=== PATIENT | male | born 1970 | race African-American/Black ===

== ENCOUNTER 2019-05-10 09:08 | Emergency (ER) | payer SELFPAY ==
--- NOTE | 2019-05-10 10:46 | ER Document Report ---
HPI - HPI Patient complains to provider of: cough Time Seen by Provider: 05/10/19 10:40 Onset: Yesterday Onset/Duration: Sudden Quality of pain: Achy Pain Level: 1 Context: This 49-year-old male with no past medical history presents emergency department with complaints of cough productive with green sputum since yesterday. Reports fever this morning but did not take his temperature. Denies vomiting diarrhea. Respiratory rate even unlabored. Patient reports increased cough at night when he lays down. Associated Symptoms: Productive cough Exacerbated by: Denies Relieved by: Denies Similar symptoms previously: No Recently seen / treated by doctor: No - REPRODUCTIVE Reproductive: DENIES: : Past Medical History - General Information source: Patient - Social History Smoking Status: Never Smoker Chew tobacco use (# tins/day): No Frequency of alcohol use: None Drug Abuse: None Occupation: [employer] Lives with: Family Family History: None Patient has suicidal ideation: No Patient has homicidal ideation: No - Medical History Medical History: Negative Surgical Hx: Negative Vertical Provider Document - CONSTITUTIONAL Agree With Documented VS: Yes Exam Limitations: No Limitations General Appearance: WD/WN, No Apparent Distress - Nontoxic looking - INFECTION CONTROL TRAVEL OUTSIDE OF THE [place] IN LAST 30 DAYS: No - HEENT HEENT: Atraumatic, Normal ENT Exam, Normocephalic, PERRLA. negative: Conjuctival Injection, Pharyngeal Erythema, Tympanic Membrane Bulging - NECK Neck: Normal Inspection, Supple. negative: Lymphadenopathy-Left, Lymphadenopathy-Right - RESPIRATORY Respiratory: Breath Sounds Normal, No Respiratory Distress. negative: Rhonchi, Wheezing - CARDIOVASCULAR Cardiovascular: Regular Rate, Regular Rhythm - GI/ABDOMEN Gastrointestinal: Abdomen Soft, Abdomen Non-Tender - BACK Back: negative: CVA Tenderness-Right, CVA Tenderness-Left - MUSCULOSKELETAL/EXTREMETIES Musculoskeletal/Extremeties: JIN, KATE - NEURO Level of Consciousness: Awake, Alert, Appropriate Motor/Sensory: No Motor Deficit - DERM Integumentary: Warm, Dry Course - Re-evaluation Re-evalutation: 05/10/19 10:45 49-year-old male presents the emergency department with productive cough since yesterday. Reports temperature today but did not take it. Took Motrin earlier. Denies vomiting diarrhea. Chest x-ray ordered 05/10/19 11:47 Chest X-Ray 05/10/19 10:43 IMPRESSION: Right upper lobe pneumonia. This needs surveillance followup imaging to clearance with treatment. - Vital Signs Vital signs: Temp Pulse Resp BP Pulse Ox 98.6 F 80 18 117/74 97 05/10/19 09:34 05/10/19 09:17 05/10/19 09:34 05/10/19 09:17 05/10/19 09:34 - Diagnostic Test Radiology reviewed: Image reviewed, Reports reviewed Discharge - Discharge Clinical Impression: Cough, Pneumonia Condition: Stable Disposition: HOME, SELF-CARE Instructions: Amoxicillin ([facility]), Azithromycin ([facility]) Additional Instructions: *You have been evaluated for cough pneumonia *Increase fluid intake as discussed *Take medication as prescribed *Monitor your temperature, take Tylenol as indicated *Follow up with a primary care provider within one week *Return to ED for worsening condition, changes, needs, difficulty breathing worsening symptoms Prescriptions: Amoxicillin Trihydrate [Amoxil 500 mg Capsule] 500 mg PO TID #30 capsule Azithromycin [Zithromax 250 mg Tablet] 250 mg PO ASDIR PRN #6 tablet PRN Reason:
--- NOTE | 2019-05-10 11:44 | RADIOLOGY REPORT (SQ) ---
EXAM DESCRIPTION: CHEST 2 VIEWS COMPLETED DATE/TIME: 05/10/2019 10:56 am REASON FOR STUDY: cough fever COMPARISON: None. TECHNIQUE: Frontal and lateral radiographic views of the chest acquired. NUMBER OF VIEWS: Two view. LIMITATIONS: None. FINDINGS: LUNGS AND PLEURA: Mild volume loss and patchy airspace disease in the right upper lobe. L ungs otherwise clear. MEDIASTINUM AND HILAR STRUCTURES: No masses or contour abnormalities. HEART AND VASCULAR STRUCTURES: Heart normal size. No evidence for failure. BONES: No acute findings. HARDWARE: None in the chest. OTHER: No other significant finding. IMPRESSION: Right upper lobe pneumonia. This needs surveillance followup imaging to clearance with treatment. TECHNICAL DOCUMENTATION: JOB ID: [id number] [employer]- All Rights Reserved Reading location - IP/workstation name: [email or web address]
[2019-05-10 12:27] VITALS: BP 128/85
== END 2019-05-10 12:25 | disposition home or self-care (01) ==
LOC: ER 09:08
DX: J18.9 Pneumonia, unspecified organism (principal); R05 Cough
CPT/HCPCS: 71046; 99283